=== PATIENT | male | born 1950 | race Caucasian/White ===

== ENCOUNTER 2016-10-05 07:40 | Emergency (ER) | payer OTHER ==
--- NOTE | 2016-10-06 08:10 | ER ---
ADMIT: 10/05/2016 RM/LOC: ER [facility] MR#: [id number] [address] [facility] [id number] [place] [id number] Emergency Room Report SEX: M AGE: 65 : 1950 DATE: 10/05/2016 ADDENDUM: A 65-year-old male comes in complaining of right knee pain. 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 He does have a history of knee replacement. He comes in today because he is having pain in the knee and wanted it evaluated. On examination, he has some mild bony tenderness on the lateral aspect of his proximal fibula. There is slight abrasion here. There is also abrasion on the lateral mid calf but minimal swelling. Neurovascular, he is intact. X-ray of the knee reveals no bony abnormality. As he has to do quite a bit of climbing and walking at work with his knee pain, he is given one day off work today with light duty tomorrow. He is to resume normal activities this coming Sunday. DIAGNOSIS: Right knee contusion. Luis Enrique Nunez MD/ azul JOB #: [id number] CC: Luis Enrique Nunez MD, Attending Physician Carissa Goldman MD, Family Physician
== END 2016-10-05 09:16 | disposition home or self-care (01) ==
LOC: ER 07:40
DX: S80.01XA Contusion of right knee, initial encounter (principal); Z88.0 Allergy status to penicillin; Z79.899 Other long term (current) drug therapy; W22.8XXA Striking against or struck by other objects, initial encounter